=== PATIENT | female | born 1945 | race Asian ===

== ENCOUNTER 2020-12-15 07:27 | Outpatient (CLI) | payer MEDICARE | END 2020-12-15 23:59 | disposition home or self-care (01) | LOC: LAB 07:27 | PROVIDERS: ATTEND Ophthalmology | DX: Z01.812 Encounter for preprocedural laboratory examination (principal); Z20.822 Contact with and (suspected) exposure to COVID-19 ==

== ENCOUNTER 2020-12-17 06:28 | Day surgery (SDC) | payer MEDICARE ==
[2020-12-17] MEDS ORDERED: KETOROLAC 0.5% OPHT DROP 3 ML BOTTLE ONE (06:45)
[2020-12-17] MEDS ORDERED: TROPICAMIDE 1% OPHT DROP 3 ML BOTTLE ONE (06:45)
[2020-12-17] MEDS ORDERED: CIPROFLOXACIN 0.3% OPHT DROP 2.5 ML BOTTLE ONE (06:46)
[2020-12-17] MEDS ORDERED: CYCLOPENTOLATE 1% OPHT DROP 2 ML BOTTLE ONE (06:46)
[2020-12-17] MEDS ORDERED: PHENYLEPHRINE 2.5% OPHT DROP 2 ML BOTTLE ONE (06:46)
[2020-12-17] MEDS ORDERED: BALANCED SALT IRRIG SOLN COMB1 500 ML, EPINEPHRINE-PF 1:1000 0.5 MG IO ONE (07:00)
[2020-12-17] MEDS ORDERED: MOXIFLOXACIN HCL 3 ML OPHT DROPS ONE (07:12)
[2020-12-17] MEDS ORDERED: TIMOLOL MALEATE 0.5% OPHT DROP 5 ML BOTTLE ONE (07:13)
[2020-12-17] MEDS ORDERED: BALANCED SALT IRRIG SOLN COMB2 15 ML IRRIG.SOLN ONE (07:13)
[2020-12-17] MEDS ORDERED: NEO/POLYMYX B/DEXAME OPHT OINT 3.5 GM TUBE ONE (07:13)
[2020-12-17] MEDS ORDERED: BUPIVACAINE PF 0.5% 30 ML VIAL ONE (07:13)
[2020-12-17] MEDS ORDERED: LIDOCAINE-MPF 2% 5 ML VIAL ONE (07:13)
[2020-12-17] MEDS ORDERED: ACETYLCHOLINE CHLORIDE 1% OPHT 1 EA KIT ONE (07:13)
[2020-12-17] MEDS ORDERED: TETRACAINE HCL 0.5% OPHT DROP 2 ML BOTTLE ONE (07:13)
[2020-12-17] MEDS ORDERED: HYALURONIDASE,OVINE 200 UNITS/ML VIAL ONE (07:13)
[2020-12-17] MEDS ORDERED: HYALURONATE SODIUM 12.8 MG/0.8 ML DISP.SYRIN ONE (07:14)
[2020-12-17] MEDS ORDERED: FENTANYL CITRATE 100 MCG/2 ML AMPUL ONE (07:32)
== END 2020-12-17 10:30 | disposition home or self-care (01) ==
LOC: DS 06:28
PROVIDERS: ATTEND Ophthalmology
DX: H25.812 Combined forms of age-related cataract, left eye (principal); I11.0 Hypertensive heart disease with heart failure; I50.9 Heart failure, unspecified; J44.9 Chronic obstructive pulmonary disease, unspecified; M19.90 Unspecified osteoarthritis, unspecified site; Z79.899 Other long term (current) drug therapy; Z98.890 Other specified postprocedural states; Z90.710 Acquired absence of both cervix and uterus; Z88.8 Allergy status to other drugs, medicaments and biological substances
CPT/HCPCS: 66984; 93005; J0171; J3010; J3471; J3490 ×2; J7120; J7321; V2632; A4663

== ENCOUNTER 2021-02-23 07:19 | Outpatient (CLI) | payer MEDICARE | END 2021-02-23 23:59 | disposition home or self-care (01) | LOC: LAB 07:19 | PROVIDERS: ATTEND Ophthalmology | DX: Z01.812 Encounter for preprocedural laboratory examination (principal); Z20.822 Contact with and (suspected) exposure to COVID-19 ==

== ENCOUNTER → 2021-02-25 | Day surgery (SDC) | payer MEDICARE ==
[~2021-02-25] MED LIST: ACETYLCHOLINE CHLORIDE 1% OPHT 1 EA KIT ONE; BALANCED SALT IRRIG SOLN COMB1 0 ML ONE; BALANCED SALT IRRIG SOLN COMB1 500 ML, EPINEPHRINE-PF 1:1000 0.5 MG IO ONE; BALANCED SALT IRRIG SOLN COMB2 15 ML IRRIG.SOLN ONE; BUPIVACAINE PF 0.5% 30 ML VIAL ONE; CIPROFLOXACIN 0.3% OPHT DROP 2.5 ML BOTTLE ONE; CYCLOPENTOLATE 1% OPHT DROP 2 ML BOTTLE ONE; FENTANYL CITRATE 100 MCG/2 ML AMPUL ONE; HYALURONATE SODIUM 12.8 MG/0.8 ML DISP.SYRIN ONE; HYALURONIDASE,OVINE 200 UNITS/ML VIAL ONE; KETOROLAC 0.5% OPHT DROP 3 ML BOTTLE ONE; LIDOCAINE-MPF 2% 5 ML VIAL ONE; MOXIFLOXACIN HCL 3 ML OPHT DROPS ONE; NEO/POLYMYX B/DEXAME OPHT OINT 3.5 GM TUBE ONE; PHENYLEPHRINE 2.5% OPHT DROP 2 ML BOTTLE ONE; TETRACAINE HCL 0.5% OPHT DROP 2 ML BOTTLE ONE; TIMOLOL MALEATE 0.5% OPHT DROP 5 ML BOTTLE ONE; TROPICAMIDE 1% OPHT DROP 3 ML BOTTLE ONE; TRYPAN BLUE 0.5 ML DISP.SYRIN ONE
--- NOTE | 2021-02-25 07:58 | NUR ---
XRAY HAS NOT BEEN READ, I LEFT A MESSAGE ON [employer] TO READ RIGHT AWAY, SINCE THIS PATIENT IS READY FOR HER SURGERY. i ALSO CALLED [facility] AND SPOKE TO RAMON, SHE SAID SHE WOULD HAVE DOCTOR READ IT SOON POSSIBLE.
== END | disposition home or self-care (01) ==
LOC: DS 06:33
PROVIDERS: ATTEND Ophthalmology
DX: H25.89 Other age-related cataract (principal); I11.0 Hypertensive heart disease with heart failure; I50.9 Heart failure, unspecified; M19.90 Unspecified osteoarthritis, unspecified site; Z79.899 Other long term (current) drug therapy; Z98.890 Other specified postprocedural states
CPT/HCPCS: 71045; A4217; A4663; J0171; J3010; J3471; J3490; J7120; J7321; Q9968; V2632